=== PATIENT | female | born 1990 | race Two or more races ===

== ENCOUNTER 2016-12-20 13:32 | Emergency (ER) | payer OTHER ==
[~2016-12-20] VITALS: Ht 167.6 cm; Wt 103.6 kg
[~2016-12-20 13:32] MED LIST: ALBUTEROL SULF8.5 GM IH; CLARITIN10 M4 PO; CLINDAMYCIN HC300 MG PO; ENDOCET 5-3251 EACH PO; FLONASE16 G1 BOTH NARES; METFORMIN HCL500 M4 PO; MOTRIN800 MG PO; Motrin PO; NASONEX17 GM BOTH NARES; NORCO 5/3251 TABLET PO; PLAVIX75 MG PO; PREDNISONE20 MG PO; PREFERA-OB P1 TABLET PO; PROZAC20 MG PO; Percocet 5/325,Endoc PO; TESSALON PERLE100 MG PO; ULTRAM50 MG PO; XANAX0.5 MG PO; ZITHROMAX Z-PA250 MG PO
[2016-12-20 13:40] VITALS: BP 139/76
[2016-12-20 14:20] LABS: HEMATOCRIT 35.2 % (36.0-46.0); MCH 26.3 PG (29.0-34.0); MCHC 31.5 G/DL (30.0-36.0); MCV 83.4 FL (83-99); MEAN PLAT.VOLUME 10.7 uM^3 (9.5-12.4); PLATELET COUNT 240 K/uL (156-360); RBC DIS.WIDTH-CV 13.2 % (11.8-14.6); RBC DIS.WIDTH-SD 39.9 % (39-53); RED BLOOD COUNT 4.22 M/uL (3.80-5.20); WHITE BLOOD COUNT 8.6 K/uL (4.1-10.2)
[2016-12-20 14:34] LABS: CHLORIDE 106 mEq/L (99-109); SODIUM 138 mEq/L (136-147)
[2016-12-20 14:36] LABS: GLUCOSE 83 mg/dL (70-99)
[2016-12-20 14:37] LABS: ANION GAP 9 MEQ/L (2-14)
[2016-12-20 14:38] LABS: TOTAL BILIRUBIN 0.5 mg/dL (0.0-1.0)
[2016-12-20 14:39] LABS: ALKALINE PHOSPHATASE 47 IU/L (3-129)
[2016-12-20 14:40] LABS: GFR ESTIMATE (CALCULATED) > 59 mL/min/
[2016-12-20 14:41] LABS: UREA NITROGEN (BUN) 6 mg/dL (9-23)
[2016-12-20 16:09] LABS: ADD MIUA? YES; BILIRUBIN NEGATIVE; BLOOD NEGATIVE; COLOR YELLOW ((YELLOW)); GLUCOSE (STRIP) NEGATIVE; KETONES 80; LEUKOCYTES TRACE; NITRITE NEGATIVE; PROTEIN (STRIP) 30; UROBILINOGEN 0.2 MG/DL (0.2-1.0)
[2016-12-20 16:14] LABS: BACTERIA RARE /HPF; EPITHELIAL CELLS 4+ /HPF; MUCUS 2+ /LPF; RED BLOOD CELLS 0-5 /HPF (0-5); UCUL ADDED? NO
[2016-12-23 13:07] LABS: CHLAMYDIA TRACHOMATIS NEGATIVE; NEISSERIA GONORRHOEAE NEGATIVE
== END 2016-12-20 17:23 | disposition left against medical advice (07) ==
LOC: EME 13:32
PROVIDERS: Physician Assistant
DX: O99.89 Other specified diseases and conditions complicating pregnancy, childbirth and the puerperium (principal); R10.9 Unspecified abdominal pain; Z3A.00 Weeks of gestation of pregnancy not specified; O99.330 Smoking (tobacco) complicating pregnancy, unspecified trimester
CPT/HCPCS: 80053; 81003; 84702; 85027; 87210; 87491; 87591; 99281; 99282

== ENCOUNTER → 2017-01-18 | Outpatient (CLI) | payer OTHER | END | disposition home or self-care (01) | LOC: CDC 11:16 | DX: E11.65 Type 2 diabetes mellitus with hyperglycemia (principal) | CPT/HCPCS: 93000 ==

== ENCOUNTER 2017-03-16 20:33 | Emergency (ER) | payer OTHER ==
[~2017-03-16] VITALS: Ht 167.6 cm; Wt 103.2 kg
[2017-03-16 20:55] LABS: EOSINOPHIL (%) 0.9 % (0-5); EOSINOPHIL COUNT 0.1 K/uL (0-0.3); HEMATOCRIT 34.2 % (36.0-46.0); IMMATURE GRANULOCYTE (%) 0.3 % (0.0-0.7); INSTRUMENT ABS NEUTROPHIL CT 6.9 K/uL; LYMPHOCYTE COUNT 2.3 K/uL (1.0-2.8); MCH 26.7 PG (29.0-34.0); MCHC 31.6 G/DL (30.0-36.0); MCV 84.7 FL (83-99); MEAN PLAT.VOLUME 11.1 uM^3 (9.5-12.4); MONOCYTE (%) 4.9 % (3-12); MONOCYTE COUNT 0.5 K/uL (0-0.8); NEUTROPHIL (%) 70.5 % (45-76); NEUTROPHIL COUNT 6.9 K/uL (1.8-6.4); PLATELET COUNT 229 K/uL (156-360); RBC DIS.WIDTH-CV 13.7 % (11.8-14.6); RBC DIS.WIDTH-SD 42.6 % (39-53); RED BLOOD COUNT 4.04 M/uL (3.80-5.20); WHITE BLOOD COUNT 9.8 K/uL (4.1-10.2)
[2017-03-16 21:07] LABS: AMYLASE 51 IU/L (1-118); CHLORIDE 108 mEq/L (99-109); POTASSIUM 3.3 mEq/L (3.7-5.4); SODIUM 141 mEq/L (136-147)
[2017-03-16 21:09] LABS: GLUCOSE 89 mg/dL (70-99)
[2017-03-16 21:10] LABS: ANION GAP 8 MEQ/L (2-14)
[2017-03-16 21:12] LABS: SERUM ETHYL ALCOHOL < 10 mg/dL
[2017-03-16 21:13] LABS: GFR ESTIMATE (CALCULATED) > 59 mL/min/
[2017-03-16 21:14] LABS: UREA NITROGEN (BUN) 8 mg/dL (9-23)
[2017-03-16 21:16] LABS: LIPASE 9 U/L (1.0-51.0)
[2017-03-16 21:22] LABS: QUANTITATIVE HCG 1603.9 MIU/ML
[2017-03-17] VITALS (7 sets, daily range): BP systolic 99–123; BP diastolic 58–70
[2017-03-17] MEDS ORDERED: LO-DOSE ASPIRIN81 M2 PO (00:50)
[2017-03-17] MEDS ORDERED: PNV PRENATAL P1 EACH PO (00:50)
[2017-03-17] MEDS ORDERED: METHADONE10 MG/1 M1 PO (00:51)
[2017-03-17 02:37] LABS: ADD MIUA? YES; BILIRUBIN NEGATIVE; BLOOD NEGATIVE; COLOR AMBER ((YELLOW)); GLUCOSE (STRIP) NEGATIVE; KETONES 80; LEUKOCYTES SMALL; NITRITE NEGATIVE; PROTEIN (STRIP) 100; SPECIFIC GRAVITY 1.028 (1.000-1.030)
[2017-03-17 02:48] LABS: AMPHETAMINE NEGATIVE (500 ng/mL); BARBITURATES NEGATIVE (200 ng/mL); BENZODIAZEPINES NEGATIVE (150 ng/mL); COCAINE PRESUMPTIVE POSITIVE (150 ng/mL); INTERNAL CONTROLS VALID? YES; METHADONE PRESUMPTIVE POSITIVE (200 ng/mL); METHAMPHETAMINE NEGATIVE (500 ng/mL); OPIATES (MORPHINE) NEGATIVE (100 ng/mL); OXYCODONE NEGATIVE (100 ng/mL); PHENCYCLIDINE NEGATIVE (25 ng/mL); PROPOXYPHENE NEGATIVE (300 ng/mL); THC CANNABINOIDS PRESUMPTIVE POSITIVE (50 ng/mL); TRICYCLIC ANTIDEPRESSANTS NEGATIVE (300 ng/mL)
[2017-03-17 02:49] LABS: ADD MEDTOX COMMENT Y
[2017-03-17 02:53] LABS: BACTERIA NONE SEEN /HPF; EPITHELIAL CELLS 1+ /HPF; MUCUS 2+ /LPF; RED BLOOD CELLS 0-5 /HPF (0-5); UCUL ADDED? NO
[2017-03-17 11:02] LABS: TREPONEMA ANTIBODY NEGATIVE (NEGATIVE)
[2017-03-17 12:19] LABS: CHLAMYDIA TRACHOMATIS NEGATIVE; NEISSERIA GONORRHOEAE NEGATIVE
[2017-03-17 19:06] LABS: POINT-OF-CARE METER ID UU13113801
[2017-03-18 04:45] VITALS: BP 110/74
[2017-03-18 08:40] VITALS: BP 107/61
[2017-03-18] MEDS ORDERED: TRAMADOL HCL50 MG PO (09:14)
[2017-03-18 11:16] VITALS: BP 120/67
[2017-03-18 14:37] LABS: HEMATOCRIT 30.1 % (36.0-46.0); MCH 27.4 PG (29.0-34.0); MCHC 31.9 G/DL (30.0-36.0); MCV 85.8 FL (83-99); MEAN PLAT.VOLUME 11.2 uM^3 (9.5-12.4); PLATELET COUNT 195 K/uL (156-360); RBC DIS.WIDTH-CV 13.8 % (11.8-14.6); RED BLOOD COUNT 3.51 M/uL (3.80-5.20); WHITE BLOOD COUNT 8.2 K/uL (4.1-10.2)
[2017-03-18 14:59] LABS: ANION GAP 5 MEQ/L (2-14); CHLORIDE 105 MEQ/L (99-109); GFR ESTIMATE (CALCULATED) > 59 mL/min/; GLUCOSE 70 mg/dL (70-99); SAMPLE HEMOLYSIS CHECK 0; SAMPLE ICTERIC CHECK 0; SAMPLE LIPEMIA CHECK 0; SODIUM 135 MEQ/L (136-147); UREA NITROGEN (BUN) 6 mg/dL (9-23)
[2017-03-18 15:08] VITALS: BP 118/66
== END 2017-03-18 17:08 | disposition home or self-care (01) ==
LOC: EME 20:33 → TRA 20:33 → 2WEST 03-17 01:46 → 3EAST 03-17 01:46 → 2WEST 03-17 18:05 → 3EAST 03-17 19:35
PROVIDERS: Emergency Medicine; Physician Assistant Surgical; Surgery
PROC: 0HQ0XZZ Repair Scalp Skin, External Approach (ICD-10-PCS; principal; 2017-03-17)
DX: S06.0X0A Concussion without loss of consciousness, initial encounter (principal); S01.01XA Laceration without foreign body of scalp, initial encounter; T76.21XA Adult sexual abuse, suspected, initial encounter; S40.212A Abrasion of left shoulder, initial encounter; S30.810A Abrasion of lower back and pelvis, initial encounter; R11.2 Nausea with vomiting, unspecified; V09.00XA Pedestrian injured in nontraffic accident involving unspecified motor vehicles, initial encounter; Z3A.25 25 weeks gestation of pregnancy
CPT/HCPCS: 59025; 70450; 72125; 76805; 80048; 81003; 82150; 82948; 83690; 84702; 84999; 85025; 85027; 86780; 86900; 86901; 87210; 87491; 87591; 99281; 99285; G0378; G0480; J1815; J2405; J7120; Q0169

== ENCOUNTER 2017-06-07 08:29 | Inpatient (IN) | payer OTHER ==
[~2017-06-07] VITALS: Ht 170.2 cm; Wt 99.3 kg
[~2017-06-07 08:29] MED LIST changes: +LO-DOSE ASPIRIN81 M2 PO; +METHADONE10 MG/1 M1 PO; +PNV PRENATAL P1 EACH PO; +TRAMADOL HCL50 MG PO; +TUMS500 MG PO; +TYLENOL EXTRA500 MG PO
[2017-06-07 09:50] VITALS: BP 133/72
[2017-06-07 10:21] LABS: EOSINOPHIL (%) 0.7 % (0-5); EOSINOPHIL COUNT 0.1 K/uL (0-0.3); HEMATOCRIT 36.3 % (36.0-46.0); IMMATURE GRANULOCYTE (%) 0.5 % (0.0-0.7); IMMATURE GRANULOCYTE COUNT 0.1 K/uL; INSTRUMENT ABS NEUTROPHIL CT 9.7 K/uL; LYMPHOCYTE COUNT 1.8 K/uL (1.0-2.8); MCH 27.9 PG (29.0-34.0); MCHC 32.5 G/DL (30.0-36.0); MCV 85.8 FL (83-99); MEAN PLAT.VOLUME 10.7 uM^3 (9.5-12.4); MONOCYTE (%) 4.8 % (3-12); MONOCYTE COUNT 0.6 K/uL (0-0.8); NEUTROPHIL (%) 79.4 % (45-76); NEUTROPHIL COUNT 9.7 K/uL (1.8-6.4); PLATELET COUNT 263 K/uL (156-360); RBC DIS.WIDTH-CV 13.7 % (11.8-14.6); RBC DIS.WIDTH-SD 42.6 % (39-53); RED BLOOD COUNT 4.23 M/uL (3.80-5.20); WHITE BLOOD COUNT 12.2 K/uL (4.1-10.2)
[2017-06-07 10:43] LABS: ALKALINE PHOSPHATASE 144 IU/L (3-129); ANION GAP 11 MEQ/L (2-14); CHLORIDE 103 MEQ/L (99-109); GFR ESTIMATE (CALCULATED) > 59 mL/min/; GLUCOSE 112 mg/dL (70-99); POTASSIUM 4.3 MEQ/L (3.7-5.4); SAMPLE HEMOLYSIS CHECK 0; SAMPLE ICTERIC CHECK 0; SAMPLE LIPEMIA CHECK 0; SODIUM 134 MEQ/L (136-147); TOTAL BILIRUBIN 0.4 MG/DL (0.0-1.0); UREA NITROGEN (BUN) 10 mg/dL (9-23)
[2017-06-07 10:54] LABS: Estimated Average Glucose 126 mg/dL (70-123)
[2017-06-07 11:41] VITALS: BP 122/75
[2017-06-07 12:23] LABS: AMPHETAMINES QUANT VALUE 0 NG/ML; BARBITUATES QUANT VALUE 0 NG/ML; BENZODIAZEPINES QUANT VALUE 0 NG/ML; BENZODIAZEPINES, URINE SCREEN Negative (200 ng/mL); OPIATES QUANTITATIVE VALUE 0 NG/ML; PHENCYCLIDINE QUANT VALUE 0 NG/ML
[2017-06-07 12:52] LABS: METH RESISTANT S AUREUS PCR NEGATIVE (NEGATIVE); PROBE CHECK PASS; SPECIMEN PROCESSING CONTROL PASS
[2017-06-07 15:00] VITALS: BP 110/66
[2017-06-07 16:00] VITALS: BP 118/65
[2017-06-07 17:13] VITALS: BP 132/65
[2017-06-07 19:47] LABS: POINT-OF-CARE METER ID UU13113801
[2017-06-07 22:27] VITALS: BP 129/71
[2017-06-08 00:39] VITALS: BP 125/68
[2017-06-08 02:45] VITALS: BP 120/61
[2017-06-08 06:24] LABS: POINT-OF-CARE METER ID UU13113801
[2017-06-08 07:19] VITALS: BP 125/81
[2017-06-08 07:51] LABS: EOSINOPHIL (%) 0.8 % (0-5); EOSINOPHIL COUNT 0.1 K/uL (0-0.3); HEMATOCRIT 33.4 % (36.0-46.0); IMMATURE GRANULOCYTE (%) 0.4 % (0.0-0.7); IMMATURE GRANULOCYTE COUNT 0.1 K/uL; INSTRUMENT ABS NEUTROPHIL CT 11.1 K/uL; LYMPHOCYTE COUNT 2.4 K/uL (1.0-2.8); MCH 27.4 PG (29.0-34.0); MCHC 31.7 G/DL (30.0-36.0); MCV 86.3 FL (83-99); MEAN PLAT.VOLUME 10.5 uM^3 (9.5-12.4); MONOCYTE (%) 4.9 % (3-12); MONOCYTE COUNT 0.7 K/uL (0-0.8); NEUTROPHIL COUNT 11.1 K/uL (1.8-6.4); PLATELET COUNT 235 K/uL (156-360); RBC DIS.WIDTH-CV 13.5 % (11.8-14.6); RBC DIS.WIDTH-SD 41.6 % (39-53); RED BLOOD COUNT 3.87 M/uL (3.80-5.20); WHITE BLOOD COUNT 14.4 K/uL (4.1-10.2)
[2017-06-08 10:34] VITALS: BP 112/54
[2017-06-08 11:27] LABS: POINT-OF-CARE METER ID UU13113801
[2017-06-08 15:10] LABS: POINT-OF-CARE METER ID UU13113801
[2017-06-08 15:29] VITALS: BP 132/78
[2017-06-08 19:21] LABS: POINT-OF-CARE METER ID UU13113801
[2017-06-09 06:25] LABS: POINT-OF-CARE METER ID UU13113801
[2017-06-09 08:15] VITALS: BP 127/72
[2017-06-09 10:03] LABS: POINT-OF-CARE METER ID UU13113801
[2017-06-09 11:05] VITALS: BP 123/67
[2017-06-09 16:13] VITALS: BP 134/63
[2017-06-09 17:48] LABS: POINT-OF-CARE METER ID UU13113692
[2017-06-09 19:11] VITALS: BP 134/73
[2017-06-09 22:55] VITALS: BP 140/74
[2017-06-10 00:24] VITALS: BP 134/73
[2017-06-10 00:52] LABS: POINT-OF-CARE METER ID UU13113692
[2017-06-10 03:00] VITALS: BP 123/75
[2017-06-10 07:48] LABS: POINT-OF-CARE METER ID UU13113692
[2017-06-10 19:00] VITALS: BP 137/79
[2017-06-10 23:01] VITALS: BP 134/79
[2017-06-11 03:00] VITALS: BP 128/77
[2017-06-11] MEDS ORDERED: ENDOCET 5-3251 EACH PO (10:54)
[2017-06-11] MEDS ORDERED: IBUPROFEN800 MG PO (10:54)
== END 2017-06-11 17:06 | disposition home or self-care (01) | DRG 765 ==
LOC: 2SOUTH 08:29 → 2WEST 09:31 → 2SOUTH 12:32 → 2WEST 06-11 17:06
PROVIDERS: Obstetrics & Gynecology
DX: O34.219 Maternal care for unspecified type scar from previous cesarean delivery (principal); Z37.0 Single live birth; Z3A.37 37 weeks gestation of pregnancy; E66.9 Obesity, unspecified; O99.214 Obesity complicating childbirth; Z68.34 Body mass index [BMI] 34.0-34.9, adult; O99.02 Anemia complicating childbirth; D50.9 Iron deficiency anemia, unspecified; Z30.2 Encounter for sterilization; M30.3 Mucocutaneous lymph node syndrome [Kawasaki]; O75.89 Other specified complications of labor and delivery; F14.10 Cocaine abuse, uncomplicated; F12.10 Cannabis abuse, uncomplicated; Z91.19 Patient's noncompliance with other medical treatment and regimen; F16.10 Hallucinogen abuse, uncomplicated; F11.10 Opioid abuse, uncomplicated; O99.324 Drug use complicating childbirth; O24.12 Pre-existing type 2 diabetes mellitus, in childbirth; E11.9 Type 2 diabetes mellitus without complications
CPT/HCPCS: 80053; 80306 90; 82948; 83036; 85025; 86850; 86900; 86901; 87641; 88307; J0690; J1100; J1170; J1815; J2274; J2405; J7120

== ENCOUNTER 2017-08-09 15:41 | Inpatient (IN) | payer OTHER ==
[~2017-08-09] VITALS: Ht 170.2 cm; Wt 91.1 kg
[~2017-08-09 15:41] MED LIST changes: +IBUPROFEN800 MG PO
[2017-08-09 16:57] LABS: EOSINOPHIL (%) 1.9 % (0-5); EOSINOPHIL COUNT 0.2 K/uL (0-0.3); HEMATOCRIT 40.2 % (36.0-46.0); IMMATURE GRANULOCYTE (%) 0.2 % (0.0-0.7); INSTRUMENT ABS NEUTROPHIL CT 5.9 K/uL; LYMPHOCYTE COUNT 2.1 K/uL (1.0-2.8); MCH 26.3 PG (29.0-34.0); MCHC 30.8 G/DL (30.0-36.0); MCV 85.2 FL (83-99); MEAN PLAT.VOLUME 10.7 uM^3 (9.5-12.4); MONOCYTE COUNT 0.7 K/uL (0-0.8); NEUTROPHIL COUNT 5.9 K/uL (1.8-6.4); PLATELET COUNT 262 K/uL (156-360); RBC DIS.WIDTH-CV 13.4 % (11.8-14.6); RBC DIS.WIDTH-SD 41.9 % (39-53); RED BLOOD COUNT 4.72 M/uL (3.80-5.20); WHITE BLOOD COUNT 8.9 K/uL (4.1-10.2)
[2017-08-09 17:06] LABS: CHLORIDE 105 mEq/L (99-109); POTASSIUM 3.8 mEq/L (3.7-5.4); SODIUM 139 mEq/L (136-147)
[2017-08-09 17:08] LABS: GLUCOSE 127 mg/dL (70-99)
[2017-08-09 17:09] LABS: ANION GAP 11 MEQ/L (2-14)
[2017-08-09 17:11] LABS: SERUM ETHYL ALCOHOL < 10 mg/dL
[2017-08-09 17:12] LABS: GFR ESTIMATE (CALCULATED) > 59 mL/min/
[2017-08-09 17:13] LABS: UREA NITROGEN (BUN) 11 mg/dL (9-23)
[2017-08-09 17:20] LABS: TROP-I INTERPRETATION NEGATIVE; TROPONIN-I < 0.01 ng/mL (0.0-0.30)
[2017-08-09 17:21] LABS: QUANTITATIVE HCG < 4.0 MIU/ML
[2017-08-09 18:59] LABS: ADD MIUA? YES; BILIRUBIN NEGATIVE; BLOOD NEGATIVE; COLOR YELLOW ((YELLOW)); GLUCOSE (STRIP) NEGATIVE; KETONES NEGATIVE; LEUKOCYTES NEGATIVE; NITRITE NEGATIVE; PROTEIN (STRIP) NEGATIVE; SPECIFIC GRAVITY 1.021 (1.000-1.030); UROBILINOGEN 0.2 MG/DL (0.2-1.0)
[2017-08-09 19:10] LABS: BACTERIA NONE SEEN /HPF; EPITHELIAL CELLS 1+ /HPF; MUCUS TRACE /LPF; RED BLOOD CELLS 0-5 /HPF (0-5); WHITE BLOOD CELLS 0-5 /HPF (0-5)
[2017-08-09 19:20] LABS: ADD MEDTOX COMMENT Y; AMPHETAMINE NEGATIVE (500 ng/mL); BARBITURATES NEGATIVE (200 ng/mL); BENZODIAZEPINES NEGATIVE (150 ng/mL); COCAINE PRESUMPTIVE POSITIVE (150 ng/mL); INTERNAL CONTROLS VALID? YES; METHADONE NEGATIVE (200 ng/mL); METHAMPHETAMINE NEGATIVE (500 ng/mL); OPIATES (MORPHINE) NEGATIVE (100 ng/mL); OXYCODONE NEGATIVE (100 ng/mL); PHENCYCLIDINE PRESUMPTIVE POSITIVE (25 ng/mL); PROPOXYPHENE NEGATIVE (300 ng/mL); THC CANNABINOIDS PRESUMPTIVE POSITIVE (50 ng/mL); TRICYCLIC ANTIDEPRESSANTS NEGATIVE (300 ng/mL)
[2017-08-09 20:56] VITALS: BP 136/75
[2017-08-09 21:23] LABS: POINT-OF-CARE METER ID UU14188576
[2017-08-10 07:48] VITALS: BP 110/57
[2017-08-10 15:38] VITALS: BP 127/71
[2017-08-11 07:56] VITALS: BP 116/61
[2017-08-11] MEDS ORDERED: GABAPENTIN100 MG PO (09:31)
[2017-08-11] MEDS ORDERED: DIVALPROEX SOD500 M1 PO (09:31)
== END 2017-08-11 10:38 | disposition home or self-care (01) | DRG 885 ==
LOC: EME 15:41 → 1WEST 19:17 → EDOF 19:17 → 1WEST 19:17 → ENRESERV 20:30 → 1WEST 20:39
PROVIDERS: Emergency Medicine; Psychiatry & Neurology Psychiatry
DX: F31.81 Bipolar II disorder (principal); R45.851 Suicidal ideations; F41.1 Generalized anxiety disorder; F14.10 Cocaine abuse, uncomplicated; F16.10 Hallucinogen abuse, uncomplicated; F12.10 Cannabis abuse, uncomplicated; F11.21 Opioid dependence, in remission; E11.9 Type 2 diabetes mellitus without complications; M30.3 Mucocutaneous lymph node syndrome [Kawasaki]; F17.200 Nicotine dependence, unspecified, uncomplicated; Z91.5 Personal history of self-harm
CPT/HCPCS: 71020; 80048; 81003; 82948; 84484; 84702; 84999; 85025; 90839; 93005; 97150 GO; 97530 GO; 99281; 99283; G0480; Q0177